=== PATIENT | male | born 1955 | race Caucasian/White ===

== ENCOUNTER → 2020-06-22 07:41 | Outpatient (BNVA) | payer BC, SELFPAY | PROVIDERS: PCP Family Medicine; Visit Provider Internal Medicine Pulmonary Disease | DX: R06.02 Shortness of breath (principal) | CPT/HCPCS: 87635 ==

== ENCOUNTER 2020-06-26 08:08 | Outpatient (CLI) | payer BC, SELFPAY ==
--- NOTE | 2020-06-26 14:51 | PFTS_ITS ---
Date of Study:06/26/20 Date of Dictation: MECHANICS: Forced vital capacity (FVC) is normal. Forced expiratory volume in one second (FEV1) is reduced. FEV1/FVC is reduced. FLOW VOLUME LOOP: Reduced flow at all lung volumes with scooping. LUNG VOLUMES: Total lung capacity (TLC) is normal. Residual volume (RV) is increased. DIFFUSING CAPACITY FOR CARBON MONOXIDE: Normal. INTERPRETATION: The prebronchodilator spirometry is consistent with moderate obstruction. Lung volumes are consistent with mild air trapping. Gas exchange (DLCO) is normal. MTDD
== END 2020-06-26 08:09 | disposition home or self-care (01) ==
LOC: RT 08:13
PROVIDERS: PCP Family Medicine; Visit Provider Internal Medicine Pulmonary Disease
DX: J45.909 Unspecified asthma, uncomplicated (principal)
CPT/HCPCS: 94010; 94726; 94729

== ENCOUNTER 2020-07-12 09:26 | Outpatient (CLI) | payer BC, SELFPAY ==
--- NOTE | 2020-07-12 10:03 | AMB.MCA ---
Patient Information Referred by: Dr Belle Symptom onset date: 07/10/20 Severity: mild Other details: Positive test 07/10 [facility] COVID test results: Nasal/Oral Coronavirus 2019 PCR Not detected 06/22/20 07:41 06/22/20 outside results available, scanned Criteria/Plan Inclusion/Exclusion Criteria weight >/= 40kg, + direct test </= 10 days ago and symptom onset </= 10 days ago age >/= 55 and has COPD/lung diease not requiring hospitalization, not requiring oxygen (if not chronically on oxygen) and no increase oxygen requirement (if chronically on oxygen) Patient education patient/caregiver received/reviewed fact sheet, Emergency Use Authorization/unapproved drug status discussed with patient/caregiver, alternatives to this treatment discussed with patient/caregiver, risks and benefits of medication reviewed with patient/caregiver, patient/caregiver given opportunity for questions, which were answered and patient/caregiver consents to receiving Monoclonal Antibody Treatment Plan for treatment Meets criteria for Monoclonal Antibody infusion Other information 97% RA sat
[2020-07-12 10:12] VITALS: BP 118/86; PULSE 102; RESP 18; O2SAT 97; BMI 33.2
[2020-07-12 10:51] VITALS: BP 124/79; PULSE 87; RESP 18; O2SAT 95
[2020-07-12 11:34] VITALS: BP 116/80; PULSE 82; RESP 17; O2SAT 95
[2020-07-12 12:30] VITALS: BP 124/89; PULSE 85; RESP 17; O2SAT 95
--- NOTE | 2020-07-26 16:07 | DCPLANNER ---
[facility] department manager called to check on patient after getting the BAM infusion. harbor department manager spoke with patients , she stated that patient was doing really good. Patient has not been admitted to hospital anywhere.
== END 2020-07-12 12:34 | disposition home or self-care (01) ==
LOC: OPS 09:27
PROVIDERS: PCP Family Medicine; Referring Provider Nurse Practitioner Family; Visit Provider Nurse Practitioner
DX: U07.1 COVID-19 (principal)

== ENCOUNTER → 2024-10-04 11:04 | Outpatient (BNVA) | payer MEDICARE, OTHER, SELFPAY | PROVIDERS: PCP Family Medicine; Visit Provider Family Medicine | DX: Z13.6 Encounter for screening for cardiovascular disorders (principal); N40.0 Benign prostatic hyperplasia without lower urinary tract symptoms; E03.9 Hypothyroidism, unspecified | CPT/HCPCS: 80053; 80061; 84153; 84439; 84443; 85025 ==

== ENCOUNTER → 2024-10-13 10:23 | Outpatient (BNVA) | payer MEDICARE, SELFPAY | PROVIDERS: PCP Family Medicine; Visit Provider Student in an Organized Health Care Education/Training Program | DX: Z12.11 Encounter for screening for malignant neoplasm of colon (principal) | CPT/HCPCS: 99024; 99204 ==